=== PATIENT | male | born 1975 | race Two or more races ===

== ENCOUNTER → 2024-05-25 13:43 | Emergency (ER) | payer OTHER ==
[~2024-05-25] VITALS: Ht 170.2 cm; Wt 77.3 kg
[~2024-05-25 13:43] MED LIST: BENZ-227 PO; NICO-800 TD
[2024-05-25 13:46] VITALS: BP 126/71; PULSE 80; RESP 16; TEMP 98; O2SAT 98
== END | disposition left against medical advice (07) ==
LOC: EMS 13:43
DX: R05.9 Cough, unspecified (principal); Z53.21 Procedure and treatment not carried out due to patient leaving prior to being seen by health care provider
CPT/HCPCS: 71046

== ENCOUNTER 2024-05-26 08:51 | Emergency (ER) | payer OTHER ==
[~2024-05-26] VITALS: Ht 170.2 cm; Wt 77.3 kg
[2024-05-26 09:06] VITALS: BP 122/84; PULSE 80; RESP 18; TEMP 98.2; O2SAT 99
[2024-05-26 09:21] LABS: COVID AG,FIA SOURCE NASAL SWAB
[2024-05-26 09:47] LABS: INFLUENZA TYPE A NEGATIVE FOR TYPE A (NEGATIVE); INFLUENZA TYPE B NEGATIVE FOR TYPE B (NEGATIVE); SARS-COV2 (COVID) ANTIGEN,FIA Negative (Negative)
[2024-05-26] MEDS ORDERED: BENZ-227 PO (11:30)
[2024-05-26] MEDS ORDERED: NICO-800 TD (11:30)
== END 2024-05-26 11:34 | disposition home or self-care (01) ==
LOC: EMS 08:53
DX: J06.9 Acute upper respiratory infection, unspecified (principal); B97.89 Other viral agents as the cause of diseases classified elsewhere; F17.210 Nicotine dependence, cigarettes, uncomplicated; Z20.822 Contact with and (suspected) exposure to COVID-19
CPT/HCPCS: 87804; 99283; 99406